=== PATIENT | male | born 1990 | race African-American/Black ===

== ENCOUNTER 2017-10-23 14:22 | Emergency (ER) | payer SELFPAY ==
[~2017-10-23] VITALS: Ht 170.2 cm; Wt 73.0 kg
[2017-10-23] MEDS ORDERED: KETOROLAC 60MG/2ML VIAL IM ONE (17:15)
[2017-10-23] MEDS ORDERED: CYCLOBENZAPRINE 10MG TABLET PO ONE (17:15)
[2017-10-23 17:20] VITALS: BP 119/64
== END 2017-10-23 18:12 | disposition home or self-care (01) ==
LOC: ER 15:21
DX: M62.830 Muscle spasm of back (principal); F12.10 Cannabis abuse, uncomplicated
CPT/HCPCS: 96372; 99283; J1885; Z7610

== ENCOUNTER 2021-02-07 08:09 | Emergency (ER) | payer MEDICAID ==
[~2021-02-07] VITALS: Ht 172.7 cm; Wt 78.0 kg
[2021-02-07 08:13] VITALS: BP 117/85
[2021-02-07] MEDS ORDERED: CEPH500T MT (09:39)
[2021-02-07] MEDS ORDERED: NAPR-1176 MT (09:39)
[2021-02-07] MEDS ORDERED: KETOROLAC 60MG/2ML VIAL IM ONE (09:45)
== END 2021-02-07 10:30 | disposition home or self-care (01) ==
LOC: ER 08:09
DX: M79.675 Pain in left toe(s) (principal); F17.200 Nicotine dependence, unspecified, uncomplicated; F12.10 Cannabis abuse, uncomplicated
CPT/HCPCS: 96372; 99283; J1885